=== PATIENT | female | born 1990 | race African-American/Black ===

== ENCOUNTER 2021-05-15 00:50 | Day surgery (SDC) | payer BC, OTHER ==
[2021-05-15] MEDS ORDERED: hydrALAZINE 20 MG/ML VIAL SLOW IVP PRN (01:53)
[2021-05-15] MEDS ORDERED: Acetaminophen 500 MG TAB PO PRN (01:54)
[2021-05-15] MEDS ORDERED: Guaifenesin DM 100-10/5 ML UDCUP PO PRN (01:55)
[2021-05-15] MEDS ORDERED: Lactated Ringer's 1,000 ML IV SCH ×2 (02:00)
[2021-05-15 02:24] VITALS: BMI 27.8
== END 2021-05-15 03:38 | disposition home or self-care (01) ==
LOC: CSHLD/OP 00:50
PROVIDERS: ATTEND Obstetrics & Gynecology
DX: O98.513 Other viral diseases complicating pregnancy, third trimester (principal); U07.1 COVID-19; O99.891 Other specified diseases and conditions complicating pregnancy; R00.0 Tachycardia, unspecified; O99.013 Anemia complicating pregnancy, third trimester; D56.3 Thalassemia minor; Z3A.31 31 weeks gestation of pregnancy

== ENCOUNTER 2021-07-15 06:00 | Inpatient (IN) | payer OTHER ==
[2021-07-15] MEDS ORDERED: Bupivacaine/Epinephrine 0.25% 30 ML VIAL ONE (08:00)
[2021-07-15] MEDS ORDERED: Fentanyl 100 MCG/2 ML VIAL SLOW IVP PRN (20:07)
[2021-07-15] MEDS ORDERED: Misoprostol 200 MCG TAB PR PRN (20:07)
[2021-07-15] MEDS ORDERED: Ibuprofen 800 MG TAB PO PRN (20:07)
[2021-07-15] MEDS ORDERED: Carboprost 250 MCG/ML AMP IM PRN (20:07)
[2021-07-15] MEDS ORDERED: HYDROcodone/Acetaminophen 5/325 mg Tablet PO PRN (20:07)
[2021-07-15] MEDS ORDERED: Lidocaine 1% (PF) 30 ML VIAL SC PRN (20:07)
[2021-07-15] MEDS ORDERED: Ondansetron PF 4 MG/2 ML Vial IVP PRN (20:07)
[2021-07-15] MEDS ORDERED: Diphenoxylate HCl/Atropine Tablet PO PRN ×2 (20:07)
[2021-07-15] MEDS ORDERED: Promethazine HCl 25 MG/ML VIAL IM PRN (20:07)
[2021-07-15] MEDS ORDERED: NS w/ Oxytocin 30 units 500 ML IV SCH ×2 (20:07)
[2021-07-15] MEDS ORDERED: hydrALAZINE 20 MG/ML VIAL SLOW IVP PRN (20:07)
[2021-07-15] MEDS ORDERED: Acetaminophen 500 MG TAB PO PRN (20:07)
[2021-07-15 21:09] LABS: Hemoglobin 10.2 g/dL (12.0-15.5); Mean Corpuscular HGB CONC 32.3 g/dL (32.0-36.0); Mean Corpuscular Hemoglobin 26.9 pg (27.0-33.0); Mean Corpuscular Volume 83.4 fl (81.6-98.3); Mean Platelet Volume 10.9 fl (7.4-10.4); Platelet Count 189 10x3/uL (150-450); RBC Distribution Width 13.1 % (11.5-14.5); Red Blood Cell (RBC) Count 3.79 10x6/uL (3.90-5.03); White Blood Cell (WBC) Count 6.6 10x3/uL (3.5-10.5)
[2021-07-15 21:40] LABS: Hep B Surf Ag Non-Reactive S/CO (NonReactive); Syphilis Antibody Nonreactive (Nonreactive); Syphilis Antibody Index 0.09 S/CO (<1.00 Non-Reactive)
[2021-07-15 21:44] LABS: HBSAg Index 0.17 S/CO (0-0.99)
[2021-07-15] MEDS: Lactated Ringer's 1,000 ML IV SCH (22:28)
[2021-07-16] MEDS ORDERED: Fentanyl 2 mcg/Bup 0.1% Cadd 100 ML ONE (04:50)
[2021-07-16] MEDS ORDERED: Acetaminophen 325 MG TAB PO PRN (05:34)
[2021-07-16] MEDS ORDERED: Ondansetron PF 4 MG/2 ML Vial IVP PRN (05:34)
[2021-07-16] MEDS ORDERED: Naloxone HCl 0.4 mg/ml Vial IVP PRN ×2 (05:34)
[2021-07-16] MEDS ORDERED: ePHEDrine Sulfate 50 MG/10 ML VIAL SLOW IVP PRN (05:34)
[2021-07-16] MEDS ORDERED: Moisturizing Cream (Eucerin) 113 GM JAR TOP PRN (05:34)
[2021-07-16] MEDS ORDERED: diphenhydrAMINE 50 MG/ML VIAL IVP PRN (05:34)
[2021-07-16] MEDS ORDERED: Lactated Ringer's 500 ML IV PRN (05:34)
[2021-07-16] MEDS ORDERED: Promethazine HCl 25 MG/ML VIAL IM PRN (05:34)
[2021-07-16] MEDS ORDERED: Fentanyl 2 mcg/Bupivacaine 0.1% Cassette 100 ML EPIDURAL SCH (05:45)
[2021-07-16] MEDS ORDERED: Communication Order-Pharmacy FS SCH (05:45)
[2021-07-16 05:59] VITALS: BMI 30.7
[2021-07-16] MEDS ORDERED: Preparation H Ointment 28 GM TUBE PR PRN (09:55)
[2021-07-16] MEDS ORDERED: hydrALAZINE 20 MG/ML VIAL SLOW IVP PRN (09:55)
[2021-07-16] MEDS ORDERED: Milk Of Magnesia 30 ML UDCUP PO PRN (09:55)
[2021-07-16] MEDS ORDERED: Lanolin Ointment 7 GM TUBE TOP PRN (09:55)
[2021-07-16] MEDS ORDERED: traMADol HCl 50 MG TAB PO PRN (09:55)
[2021-07-16] MEDS ORDERED: Bisacodyl 10 MG SUPP PR PRN (09:55)
[2021-07-16] MEDS ORDERED: diphenhydrAMINE 25 MG CAP PO PRN (09:55)
[2021-07-16] MEDS ORDERED: Benzocaine-Menthol 82.5 ML CAN TOP PRN (09:55)
[2021-07-16] MEDS ORDERED: NS w/ Oxytocin 30 units 500 ML ONE (10:28)
[2021-07-16] MEDS: Lactated Ringer's 1,000 ML IV SCH (12:57)
[2021-07-16] MEDS: Ibuprofen 800 MG TAB PO SCH ×2 (13:21→21:17)
[2021-07-16] MEDS: traMADol HCl 50 MG TAB PO PRN ×2 (13:22→21:23)
[2021-07-16] MEDS ORDERED: Ferrous Sulfate 325 MG TAB PO SCH (17:00)
[2021-07-16] MEDS: Docusate 100 MG CAP PO SCH (21:17)
[2021-07-17] MEDS: Ibuprofen 800 MG TAB PO SCH ×2 (05:57→14:00)
[2021-07-17] MEDS: Docusate 100 MG CAP PO SCH (08:52)
[2021-07-17] MEDS ORDERED: Prenatal Vitamin 1 TAB PO SCH (09:00)
[2021-07-17] MEDS ORDERED: Boostrix 0.5 ML (Tdap) VIAL IM ONE (09:55)
[2021-07-17 18:04] VITALS: BP 124/84; TEMP 98.8
== END 2021-07-17 17:40 | disposition home or self-care (01) | DRG 807 ==
LOC: CSHLD 19:38 → CSHPP 07-16 12:05
PROVIDERS: ADMIT Obstetrics & Gynecology; ATTEND Obstetrics & Gynecology
PROC: 10E0XZZ Delivery of Products of Conception, External Approach (ICD-10-PCS; principal; 2021-07-16)
PROC: 10907ZC Drainage of Amniotic Fluid, Therapeutic from Products of Conception, Via Natural or Artificial Opening (ICD-10-PCS; 2021-07-16)
PROC: 3E033VJ Introduction of Other Hormone into Peripheral Vein, Percutaneous Approach (ICD-10-PCS; 2021-07-16)
DX: O80 Encounter for full-term uncomplicated delivery (principal); Z37.0 Single live birth; Z3A.40 40 weeks gestation of pregnancy
CPT/HCPCS: 36415; 51702; 85027; 86780; 86850; 86900; 86901; 87340; J2590; J7120